=== PATIENT | female | born 1940 | race Caucasian/White ===

== ENCOUNTER 2016-06-12 19:57 | Emergency (ER) | payer OTHER, BC ==
[2016-06-12 20:15] VITALS: BP 127/81; PULSE 99; RESP 20; O2SAT 94
[2016-06-12] MEDS ORDERED: ONDANSETRON DISINTEGRATING 4 MG TAB PO ONE (20:41)
[2016-06-12] MEDS ORDERED: ONDANSETRON DISINTEGRATING 4 MG TAB ONE (20:42)
[2016-06-12 21:41] LABS: COLOR AMBER; LEUKOCYTE ESTERASE,URINE 1+ (NEGATIVE); NITRITE,URINE POSITIVE (NEGATIVE)
--- NOTE | 2016-06-12 21:42 | EDPHY ---
H & P Time Seen by Provider: 06/12/16 21:29 HPI/ROS: CHIEF COMPLAINT: Vomiting, low-grade fever HISTORY OF PRESENT ILLNESS: 75-year-old female with a history of recurrent UTIs presents with vomiting and low-grade fever. Onset of dysuria and urinary frequency 3 weeks ago. Onset of vomiting this morning, unable to tolerate food or fluids. Associated with a low-grade fever this evening. No back pain or abdominal pain. REVIEW OF SYSTEMS: Eyes: No visual changes ENT: No sore throat Respiratory: No cough, no shortness of breath Cardiac: No chest pain Gastrointestinal: no abdominal pain Musculoskeletal: No leg pain or swelling Skin: No rash Neurological: No headache,no weakness Psychiatric: No depression Past Medical/Surgical History: Recurrent UTIs Bladder prolapse Social History: Urologist: Dr. Caraballo Smoking Status: Never smoked Physical Exam: General Appearance: Alert, nontoxic Eyes: Pupils equal and round, no conjunctival pallor or injection ENT, Mouth: Mucous membranes moist Neck: Normal inspection Respiratory: Lungs are clear to auscultation Cardiovascular: Regular rate and rhythm Gastrointestinal: Abdomen is soft and nontender Back: No CVA tenderness Neurological: A&O, nonfocal, normal gait Skin: Warm and dry, no rash Extremities: Nontender, no pedal edema Psychiatric: Mood and affect normal Constitutional: Initial Vital Signs Temperature (C) 36.8 C 06/12/16 20:11 Heart Rate 99 06/12/16 20:11 Respiratory Rate 20 06/12/16 20:11 Blood Pressure 127/81 H 06/12/16 20:11 O2 Sat (%) 94 06/12/16 20:11 O2 Delivery Mode Room Air Allergies/Adverse Reactions: No Known Allergies Allergy (Unverified 06/12/16 20:09) Home Medications: Medication Instructions Recorded Ciprofloxacin [Cipro] 500 mg PO BID #20 tab 06/12/16 Lisinopril 06/12/16 Ondansetron Odt [Zofran Odt 4 mg 4 mg PO Q4 PRN #6 tab 06/12/16 (*)] Oxycontin 06/12/16 Pravastatin Sodium 06/12/16 Prevacid 06/12/16 Medical Decision Making ED Course/Re-evaluation: This patient presents with a probable urinary tract infection. She declined IV placement. Zofran 4 mg ODT given. Patient felt much better and was able to tolerate oral fluids well. Urinalysis results discussed with her. I will place her on Cipro, at her request. Urine culture was sent. She will return to the emergency department for worsening symptoms, including persistent vomiting, fever or flank pain. Differential Diagnosis: Differential diagnosis includes though it is not limited to appendicitis, cholecystitis, diverticulitis, pyelonephritis, bowel perforation, small bowel obstruction. - Data Points Microbiology Results: MICROBIOLOGY 06/12/16 21:43 Urine,Clean Catch Urine Culture - Final Klebsiella Pneumoniae Ssp Pneu Medications Given: Discontinued Medications Ciprofloxacin (Cipro) 500 mg PO EDNOW ONE PRN Reason: Protocol Stop: 06/12/16 21:45 Last Admin: 06/12/16 22:32 Dose: 500 mg Ondansetron HCl (Zofran Odt) 4 mg PO EDNOW ONE Stop: 06/12/16 20:42 Last Admin: 06/12/16 20:46 Dose: 4 mg Ondansetron HCl (Zofran Odt 4 Mg Prepack#2) 1 btl TAKEHOME EDNOW ONE Stop: 06/12/16 21:46 Last Admin: 06/12/16 22:32 Dose: 1 btl Departure - Departure Disposition: Home, Routine, Self-Care Instructions: Urinary Tract Infection in Women (ED) Referrals: Wei Caraballo MD [Medical Doctor] - As per Instructions KVNG VERGARA [Primary Care Provider] - As per Instructions Prescriptions: Ciprofloxacin [Cipro] 500 mg PO BID #20 tab Ondansetron Odt [Zofran Odt 4 mg (*)] 4 mg PO Q4 PRN #6 tab PRN Reason: Nausea
[2016-06-12] MEDS ORDERED: CIPROFLOXACIN 500 MG TAB PO ONE (21:44)
[2016-06-12] MEDS ORDERED: ONDANSETRON 4MG PREPACK#2 BTL TAKEHOME ONE (21:45)
[2016-06-12 21:46] LABS: BACTERIA 3+ /hpf (NONE SEEN); MUCUS 1+ /lpf (NONE-1+); WBC,URINE 50-182 /hpf (0-3)
[2016-06-12 21:50] LABS: RBC,URINE NONE SEEN /hpf (0-3)
[2016-06-12 22:29] VITALS: TEMP 98.4
== END 2016-06-12 22:26 | disposition home or self-care (01) ==
DX: N39.0 Urinary tract infection, site not specified (principal); B96.1 Klebsiella pneumoniae [K. pneumoniae] as the cause of diseases classified elsewhere